=== PATIENT | male | born 1975 | race Hispanic/Latino ===

== ENCOUNTER 2024-04-23 11:37 | Observation (INO) | payer OTHER ==
[~2024-04-23] VITALS: Ht 167.6 cm; Wt 74.4 kg
[~2024-04-23 11:37] MED LIST: LEVAQUIN500 MG PO; METRONIDAZOLE500 MG PO
[2024-04-23 12:19] VITALS: TEMP 98.2
[2024-04-23] MEDS ORDERED: SODIUM CHLORIDE FLUSH 10 ML SYR IV PRN (12:30)
[2024-04-23] MEDS: AMLODIPINE BESYLATE 5 MG TAB PO ONE (12:31)
[2024-04-23 12:37] LABS: BASOPHILS # (AUTO) 0.1 (0.0-0.1); BASOPHILS % 0.9 % (0.0-1.0); EOSINOPHILS % 0.1 % (0.0-6.0); HEMATOCRIT 46.7 % (38.2-49.6); HEMOGLOBIN 15.9 g/dL (14.0-18.0); LYMPHOCYTES # (AUTO) 2.4 (1.0-3.2); LYMPHOCYTES % 18.5 % (18.0-39.1); MEAN CORPUSCULAR HEMOGLOBIN 34.1 pg (28-32); MEAN CORPUSCULAR VOLUME 100.2 fL (81-99); MONOCYTES # (AUTO) 0.7 (0.2-0.8); MONOCYTES % 5.5 % (4.4-11.3); NEUTROPHILS # (AUTO) 9.5 (2.1-6.9); NEUTROPHILS % 74.5 % (38.7-80.0); PLATELET COUNT 351 x10e3/uL (140-360); RED BLOOD COUNT 4.66 x10e6/uL (4.3-5.7); RED CELL DISTRIBUTION WIDTH 11.9 % (11.7-14.4); WHITE BLOOD COUNT 12.79 x10e3/uL (4.8-10.8)
[2024-04-23 13:05] LABS: ANION GAP 15.9 mmol/L (8-16); BILIRUBIN,TOTAL 1.3 mg/dL (0.2-1.2); CALCIUM 9.2 mg/dL (8.4-10.2); CREATININE, SERUM 1.4 mg/dL (0.72-1.25); TOTAL PROTEIN 8.2 g/dL (6.5-8.1)
[2024-04-23 13:12] LABS: TROPONIN I 0.001 ng/mL (0-0.300)
[2024-04-23 13:17] LABS: POTASSIUM 2.9 mmol/L (3.5-5.1)
[2024-04-23] MEDS: POTASSIUM CHLORIDE 20 MEQ TAB CR PO STA (14:58)
[2024-04-23] MEDS: LABETALOL HCL 5 MG/ML 20ML VIAL IV STA (15:04)
[2024-04-23] MEDS ORDERED: ONDANSETRON HCL INJ 2MG/ML 2ML 2 MG/ML VIAL IV PRN (17:00)
[2024-04-23] MEDS ORDERED: SODIUM CHLORIDE FLUSH 10 ML SYR INJ PRN (17:00)
[2024-04-23] MEDS: MUPIROCIN 2% OINT 22 GM TUBE TOP SCH (17:30)
[2024-04-23] MEDS: HYDRALAZINE HCL 20 MG/ML VIAL IV STA (17:51)
[2024-04-23] MEDS: LOSARTAN POTASSIUM 25 MG TAB PO ONE (17:54)
[2024-04-23] MEDS: ASPIRIN 81 MG CHEW TAB PO ONE (19:00)
[2024-04-23 19:40] VITALS: PULSE 89; RESP 19
[2024-04-23 21:21] LABS: TROPONIN I 0.004 ng/mL (0-0.300)
[2024-04-23 22:00] VITALS: BP 177/103; PULSE 81; RESP 20; TEMP 98.7; O2SAT 97
[2024-04-24] VITALS (8 sets, daily range): BP systolic 127–189; BP diastolic 85–104; PULSE 81–94; RESP 16–18; TEMP 97.9–98.5; O2SAT 97–100
[2024-04-24] MEDS ORDERED: TRAZODONE HCL50 MG PO (01:38)
[2024-04-24] MEDS ORDERED: ZOLOFT50 MG PO (01:38)
[2024-04-24 02:04] LABS: CREATINE KINASE 152 IU/L (30-200)
[2024-04-24 02:12] LABS: TROPONIN I < 0.001 ng/mL (0-0.300)
[2024-04-24 05:00] LABS: BASOPHILS # (AUTO) 0.1 (0.0-0.1); BASOPHILS % 0.8 % (0.0-1.0); EOSINOPHILS % 0.3 % (0.0-6.0); HEMATOCRIT 45.5 % (38.2-49.6); HEMOGLOBIN 15.3 g/dL (14.0-18.0); LYMPHOCYTES # (AUTO) 2.2 (1.0-3.2); MEAN CORPUSCULAR HEMOGLOBIN 34.1 pg (28-32); MEAN CORPUSCULAR HGB CONC 33.6 g/dL (31-35); MEAN CORPUSCULAR VOLUME 101.3 fL (81-99); MONOCYTES # (AUTO) 0.8 (0.2-0.8); MONOCYTES % 7.9 % (4.4-11.3); NEUTROPHILS # (AUTO) 7.3 (2.1-6.9); NEUTROPHILS % 69.6 % (38.7-80.0); PLATELET COUNT 333 x10e3/uL (140-360); RED BLOOD COUNT 4.49 x10e6/uL (4.3-5.7); WHITE BLOOD COUNT 10.51 x10e3/uL (4.8-10.8)
[2024-04-24 05:25] LABS: ALBUMIN 3.5 g/dL (3.5-5.0); ALBUMIN/GLOBULIN RATIO 0.9 (0.8-2.0); BILIRUBIN,TOTAL 1.6 mg/dL (0.2-1.2); CALCIUM 9.5 mg/dL (8.4-10.2); CREATININE, SERUM 1.22 mg/dL (0.72-1.25); TOTAL PROTEIN 7.4 g/dL (6.5-8.1)
[2024-04-24 05:34] LABS: TROPONIN I 0.003 ng/mL (0-0.300)
[2024-04-24] MEDS: HYDRALAZINE HCL 20 MG/ML VIAL IV ONE (05:50)
[2024-04-24] MEDS ORDERED: BISACODYL 10 MG SUPP PR PRN (06:45)
[2024-04-24] MEDS: POTASSIUM CHLORIDE 10MEQ EA PO ONE ×2 (08:32→08:35)
[2024-04-24] MEDS: LOSARTAN POTASSIUM 100 MG TAB PO ONE (08:33)
[2024-04-24] MEDS: HYDROXYZINE HCL 25 MG TAB PO PRN (08:33)
[2024-04-24] MEDS: CLONIDINE HCL 0.1 MG TAB PO PRN (08:33)
[2024-04-24] MEDS: SENNOSIDES 8.6 MG TAB PO SCH (08:33)
[2024-04-24] MEDS: DOCUSATE SODIUM 100 MG CAP PO SCH (08:33)
[2024-04-24] MEDS ORDERED: SERTRALINE HCL 50 MG TAB PO SCH (11:30)
[2024-04-24] MEDS ORDERED: HYDROXYZINE HCL10 MG PO (12:17)
[2024-04-24] MEDS ORDERED: CLONIDINE HCL0.1 MG PO (12:17)
[2024-04-24] MEDS ORDERED: LOSARTAN POTASS25 MG PO (12:20)
[2024-04-24] MEDS ORDERED: TRAZODONE HCL 50 MG TAB PO SCH (21:00)
== END 2024-04-24 15:10 | disposition home or self-care (01) ==
LOC: ER 12:22 → ERHOLD 16:59 → IMCU 21:57
PROVIDERS: ADMIT Internal Medicine; ATTEND Internal Medicine
DX: I16.0 Hypertensive urgency (principal); I10 Essential (primary) hypertension; N17.9 Acute kidney failure, unspecified; E87.6 Hypokalemia; R00.1 Bradycardia, unspecified; F41.9 Anxiety disorder, unspecified; F32.A Depression, unspecified; G47.00 Insomnia, unspecified; Z79.899 Other long term (current) drug therapy
CPT/HCPCS: 36415 ×2; 71046; 80053 ×2; 82550 ×2; 83735; 84132; 84484 ×2; 85025 ×2; 93005; 94760; 99284; G0378 ×2; J0360 ×2; J3410; J3490